=== PATIENT | female | born 1950 | race Asian ===

== ENCOUNTER 2018-10-29 02:29 | Inpatient (IN) | payer OTHER ==
[~2018-10-29] VITALS: Ht 152.4 cm; Wt 70.5 kg
[2018-10-29] MEDS ORDERED: LISI-662 PO (02:49)
[2018-10-29] MEDS ORDERED: AMLO-512 PO (02:49)
[2018-10-29] MEDS ORDERED: SIMV-260 PO (02:49)
[2018-10-29] MEDS ORDERED: METF-961 PO (02:49)
[2018-10-29 02:53] LABS: GLUCOSE,POINT OF CARE 123 MG/DL (70-110)
[2018-10-29] MEDS ORDERED: NITROGLYCERIN 2% (1 GM=INCH) PACKET TP ONE (03:00)
[2018-10-29 03:22] LABS: APPEARANCE,URINE CLEAR (CLEAR); BILIRUBIN,URINE NEGATIVE (NEGATIVE); GLUCOSE, URINE (UA) NEGATIVE (NEGATIVE); KETONES,URINE NEGATIVE (NEGATIVE); LEUKOCYTE ESTERASE ,URINE NEGATIVE (NEGATIVE); NITRATE,URINE NEGATIVE (NEGATIVE); OCCULT BLOOD,URINE TRACE (NEGATIVE); PROTEIN,URINE SEE CONFIRM (NEGATIVE); UROBILINOGEN,URINE 0.2 mg/dL (<=1.0)
[2018-10-29 03:35] LABS: BASOPHILS % (AUTO) 0.6 % (0.0-2.0); EOSINOPHILS % (AUTO) 2.1 % (1.0-6.0); HEMATOCRIT 38.8 % (36-46); HEMOGLOBIN 13.4 g/dL (12.0-16.0); LYMPHOCYTES # (AUTO) 2.5 K/uL (1.0-4.8); LYMPHOCYTES % (AUTO) 37.2 % (22.0-44.0); MEAN CORPUSCULAR HEMOGLOBIN 32.7 pg (26.0-34.0); MEAN CORPUSCULAR HGB CONC 34.5 G/dL (31.0-37.0); MEAN CORPUSCULAR VOLUME 95 fL (80-100); MONOCYTES # (AUTO) 0.3 K/uL (0.1-1.0); MONOCYTES % (AUTO) 5.1 % (2.0-9.0); NEUTROPHILS # (AUTO) 3.7 K/uL (1.8-7.7); PLATELET COUNT (AUTO) 290 K/uL (150-450); RED BLOOD CELL COUNT(AUTO) 4.09 MIL/uL (4.00-5.20); RED CELL DISTRIBUTION WIDTH 12.7 % (11.5-14.5)
[2018-10-29 03:38] LABS: SULFOSALICYLIC ACID,URINE 1+ (Negative)
[2018-10-29 03:39] LABS: ANION GAP 7 mmol/L (8-16); CALCIUM, TOTAL 8.7 mg/dL (8.8-10.5); CARBON DIOXIDE 30 mmol/L (22-29); CHLORIDE 103 mmol/L (98-107); CREATININE 0.84 mg/dL (0.60-1.30); GLOMERULAR FILTR. RATE CALC > 60 mL/min (>60); GLUCOSE,RANDOM 127 mg/dL (70-110); POTASSIUM 3.5 mmol/L (3.5-5.1); SODIUM SERUM 140 mmol/L (136-145); UREA NITROGEN, BLOOD 16 mg/dL (7-18)
[2018-10-29 03:39] LABS: BACTERIA,URINE Rare /HPF (None Seen); SQUAMOUS EPITHELIAL CELL,UR Rare /LPF (None Seen); WBC,URINE 0-2 /HPF (0-5)
[2018-10-29 03:46] LABS: ALANINE AMINOTRANSFERASE 32 U/L (12-78); ALBUMIN 3.3 g/dL (3.4-5.0); ALKALINE PHOSPHATASE 98 U/L (46-116); ASPARTATE AMINOTRANSFERASE 26 U/L (15-37); BILIRUBIN,TOTAL 0.2 mg/dL (0.1-1.0); LIPASE 247 U/L (73-393); TOTAL PROTEIN, SERUM 7.3 g/dL (6.4-8.2)
[2018-10-29 03:56] LABS: B-TYPE NATRIURETIC PEPTIDE 21 pg/mL (0-100)
[2018-10-29] MEDS ORDERED: ACETAMINOPHEN 325 MG TABLET PO PRN (04:45)
[2018-10-29] MEDS ORDERED: ONDANSETRON HCL 4 MG/2 ML VIAL IVP PRN ×2 (04:45→05:00)
[2018-10-29] MEDS ORDERED: 0.9% SODIUM CHLORIDE 10 ML SYRINGE IVP PRN (04:45)
[2018-10-29 04:58] VITALS: BP 154/68
[2018-10-29] MEDS ORDERED: OxyCODONE HCL/ACETAMINOPHEN 5-325 MG TABLET PO PRN (05:00)
[2018-10-29] MEDS ORDERED: ZOLPIDEM TARTRATE 5 MG TABLET PO PRN (05:00)
[2018-10-29] MEDS ORDERED: MAGNESIUM HYDROXIDE SUSPENSION 30 ML UDCUP PO PRN (05:00)
[2018-10-29] MEDS ORDERED: MORPHINE SULFATE 4 MG/ML SYRINGE IVP PRN (05:00)
[2018-10-29] MEDS ORDERED: ALBUTEROL SULFATE 2.5 MG/0.5 ML NEB SOLUTION NEB PRN (05:00)
[2018-10-29] MEDS ORDERED: BISACODYL 10 MG RECTAL RECTAL SUPPOSITORY PR PRN (05:00)
[2018-10-29] MEDS ORDERED: IPRATROPIUM BROMIDE 0.5 MG/2.5 ML NEB SOLUTION NEB PRN (05:00)
[2018-10-29] MEDS: NITROGLYCERIN 2% (1 GM=INCH) PACKET TP SCH ×3 (05:24→17:41)
[2018-10-29] MEDS: AmLODIPine BESYLATE 10 MG TABLET PO SCH (08:10)
[2018-10-29] MEDS: FAMOTIDINE 20 MG TABLET PO SCH (08:10)
[2018-10-29] MEDS: LISINOPRIL 20 MG TABLET PO SCH (08:10)
[2018-10-29] MEDS: MetFORMIN HCL 850 MG TABLET PO SCH (08:10)
[2018-10-29] MEDS: HEPARIN SODIUM,PORCINE 5,000 UNITS/ML VIAL SQ SCH ×2 (08:11→20:49)
[2018-10-29 08:14] VITALS: BP 106/55
[2018-10-29] MEDS ORDERED: PNEUMOCOCCAL VACCINE POLYVALENT 0.5 ML VIAL [PPSV23] IM ONE (11:45)
[2018-10-29 11:48] VITALS: BP 117/62
[2018-10-29] MEDS ORDERED: SESTAMIBI TC99M/UD ISOTOPE 1 EA INJ INJ ONE (13:30)
[2018-10-29 15:58] VITALS: BP 122/48
[2018-10-29 19:15] VITALS: BP 143/67
[2018-10-29] MEDS: SIMVASTATIN 20 MG TABLET PO SCH (20:49)
[2018-10-29 23:45] VITALS: BP 129/59
[2018-10-30] VITALS (8 sets, daily range): BP systolic 119–169; BP diastolic 57–66
[2018-10-30] MEDS: ACETAMINOPHEN 325 MG TABLET PO PRN ×4 (00:12→23:27)
[2018-10-30] MEDS: NITROGLYCERIN 2% (1 GM=INCH) PACKET TP SCH ×4 (06:00→18:00)
[2018-10-30 07:04] LABS: BASOPHILS % (AUTO) 0.3 % (0.0-2.0); EOSINOPHILS % (AUTO) 2.1 % (1.0-6.0); HEMOGLOBIN 12.6 g/dL (12.0-16.0); LYMPHOCYTES # (AUTO) 2.4 K/uL (1.0-4.8); LYMPHOCYTES % (AUTO) 39.2 % (22.0-44.0); MEAN CORPUSCULAR HEMOGLOBIN 33.3 pg (26.0-34.0); MEAN CORPUSCULAR HGB CONC 35.1 G/dL (31.0-37.0); MEAN CORPUSCULAR VOLUME 95 fL (80-100); MONOCYTES # (AUTO) 0.4 K/uL (0.1-1.0); MONOCYTES % (AUTO) 5.8 % (2.0-9.0); NEUTROPHILS # (AUTO) 3.2 K/uL (1.8-7.7); NEUTROPHILS % (AUTO) 52.6 % (40.0-70.0); PLATELET COUNT (AUTO) 277 K/uL (150-450); RED BLOOD CELL COUNT(AUTO) 3.79 MIL/uL (4.00-5.20); RED CELL DISTRIBUTION WIDTH 12.9 % (11.5-14.5)
[2018-10-30 07:35] LABS: ALANINE AMINOTRANSFERASE 30 U/L (12-78); ALBUMIN 3.1 g/dL (3.4-5.0); ALKALINE PHOSPHATASE 97 U/L (46-116); ANION GAP 7 mmol/L (8-16); ASPARTATE AMINOTRANSFERASE 21 U/L (15-37); BILIRUBIN,TOTAL 0.3 mg/dL (0.1-1.0); CALCIUM, TOTAL 8.4 mg/dL (8.8-10.5); CARBON DIOXIDE 29 mmol/L (22-29); CHLORIDE 103 mmol/L (98-107); CHOL/HDL RATIO 5.7 (3.9-5.7); CHOLESTEROL 210 mg/dL (131-200); CREATININE 0.72 mg/dL (0.60-1.30); GLOMERULAR FILTR. RATE CALC > 60 mL/min (>60); GLUCOSE,RANDOM 117 mg/dL (70-110); HDL CHOLESTEROL 37 mg/dL (40-60); LDL CHOL (CALC.) 110 mg/dL (0-130); PHOSPHORUS 4.2 mg/dL (2.5-4.9); POTASSIUM 3.6 mmol/L (3.5-5.1); SODIUM SERUM 139 mmol/L (136-145); THYROID STIMULATING HORMONE 0.54 uIU/mL (0.36-3.74); TOTAL PROTEIN, SERUM 6.7 g/dL (6.4-8.2); TRIGLYCERIDES 317 mg/dL (15-150); UREA NITROGEN, BLOOD 17 mg/dL (7-18)
[2018-10-30 07:51] LABS: HEMOGLOBIN A1C 6.6 % (4.5-6.2)
[2018-10-30] MEDS: MetFORMIN HCL 850 MG TABLET PO SCH (07:55)
[2018-10-30] MEDS: HEPARIN SODIUM,PORCINE 5,000 UNITS/ML VIAL SQ SCH ×3 (09:00→20:30)
[2018-10-30] MEDS: LISINOPRIL 20 MG TABLET PO SCH (09:38)
[2018-10-30] MEDS: AmLODIPine BESYLATE 10 MG TABLET PO SCH (09:38)
[2018-10-30] MEDS: FAMOTIDINE 20 MG TABLET PO SCH (09:38)
[2018-10-30] MEDS ORDERED: REGADENOSON 0.4 MG/5 ML PF SYRINGE IVP ONE (10:54)
[2018-10-30] MEDS ORDERED: SESTAMIBI TC99M/UD ISOTOPE 1 EA INJ INJ ONE (11:00)
[2018-10-30] MEDS ORDERED: AMINOPHYLLINE 25 MG/ML 10 ML VIAL IVP ONE (11:07)
[2018-10-30] MEDS: SIMVASTATIN 20 MG TABLET PO SCH (20:30)
[2018-10-31 04:27] VITALS: BP 123/51
[2018-10-31] MEDS: NITROGLYCERIN 2% (1 GM=INCH) PACKET TP SCH ×3 (06:00→12:00)
[2018-10-31] MEDS: ACETAMINOPHEN 325 MG TABLET PO PRN (06:11)
[2018-10-31 07:42] VITALS: BP 136/65
[2018-10-31] MEDS: AmLODIPine BESYLATE 10 MG TABLET PO SCH (08:33)
[2018-10-31] MEDS: LISINOPRIL 20 MG TABLET PO SCH (08:33)
[2018-10-31] MEDS: FAMOTIDINE 20 MG TABLET PO SCH (08:33)
[2018-10-31] MEDS: MetFORMIN HCL 850 MG TABLET PO SCH (08:33)
[2018-10-31] MEDS: HEPARIN SODIUM,PORCINE 5,000 UNITS/ML VIAL SQ SCH (08:34)
[2018-10-31 09:28] LABS: GLUCOMETER DEV NAME(LOC) 5N.1; GLUCOSE,POINT OF CARE 143 MG/DL (70-110)
[2018-10-31 11:11] VITALS: BP 139/60
[2018-10-31] MEDS ORDERED: REGADENOSON 0.4 MG/5 ML PF SYRINGE IVP ONE (14:39)
[2018-10-31] MEDS ORDERED: AMINOPHYLLINE 25 MG/ML 10 ML VIAL IV ONE (14:39)
== END 2018-10-31 14:40 | disposition home or self-care (01) | DRG 311 ==
LOC: EMS 02:30 → 5N 04:00
PROVIDERS: ADMIT Internal Medicine; ATTEND Internal Medicine
DX: I20.0 Unstable angina (principal); I10 Essential (primary) hypertension; E11.9 Type 2 diabetes mellitus without complications; E78.5 Hyperlipidemia, unspecified; E78.00 Pure hypercholesterolemia, unspecified; F17.210 Nicotine dependence, cigarettes, uncomplicated; R61 Generalized hyperhidrosis; Z88.0 Allergy status to penicillin; Z88.6 Allergy status to analgesic agent; Z82.49 Family history of ischemic heart disease and other diseases of the circulatory system; Z71.6 Tobacco abuse counseling; Z79.899 Other long term (current) drug therapy; Z79.84 Long term (current) use of oral hypoglycemic drugs
CPT/HCPCS: 78452; 83036; 83735; 84100; 84443; 93005; 93017; 93306; A9500; G0378; J0280; J1644; J2785